=== PATIENT | female | born 1985 | race African-American/Black ===

== ENCOUNTER 2017-05-29 07:59 | Outpatient (CLI) | payer OTHER ==
--- NOTE | 2017-05-29 09:53 | MRI ---
MRI LEFT KNEE: 05/29/2017 PROVIDED CLINICAL HISTORY: Left knee pain. FINDINGS: Evaluation is limited by patient motion. The anterior cruciate ligament, posterior cruciate ligament, lateral collateral ligamentous complex, and extensor mechanism appear intact. There is low grade partial thickness tearing involving the pro ximal MCL. The medial and lateral menisci demonstrate no evidence for tear with limitations due to patient motio n. No focal articular cartilage defect is apparent. The amount of fluid within the knee joint appears physiologic. Patchy marrow signal alteration is present, involving the medial femoral epicondyle and the lateral a spect of the lateral femoral condyle, posteriorly. Regional marrow and muscular signal appear otherw ise unremarkable. Apparent increased signal intensity on the axial images and sagittal images involv ing the patella is felt artifactual on the basis of proximity to the coil. IMPRESSION: 1. Limited study due to patient motion. 2. Low grade proximal medial collateral ligament tear. 3. Patchy marrow signal alteration, compatible with contusion, as described above. POS: [facility]
== END 2017-05-29 08:00 | disposition home or self-care (01) ==
LOC: SCSMRI 07:59
PROVIDERS: ATTEND Orthopaedic Surgery
DX: M25.562 Pain in left knee (principal); S83.412A Sprain of medial collateral ligament of left knee, initial encounter